=== PATIENT | male | born 1970 | race Caucasian/White ===

== ENCOUNTER 2016-11-09 03:43 | Emergency (ER) | payer MEDICAID ==
[~2016-11-09 03:43] MED LIST: ADULT LOW DOSE81 MG PO; BENTYL10 MG PO; CARAFATE1 GM PO; COREG12.5 MG PO; DALIRESP500 MCG PO; DESYREL50 MG PO; FEOSOL325 MG PO; LIPITOR40 MG PO; PLAVIX75 MG PO; PRILOSEC20 MG PO; PROAIR HFA8.5 GM INH; SPIRIVA18 MCG PO; SYMBICORT 1601 PUFFS PO; UROCIT-K10 MEQ PO; VENLAFAXINE HCL75 M1 PO; ZANTAC150 MG PO; ZOFRAN4 MG PO
[2016-11-09 04:22] LABS: BASOPHIL 0.8 % (0-2); EOSINOPHIL 1.1 % (0-5); HCT 33.5 % (42.0-52.0); HGB 11.4 g/dl (13.2-18.0); LYMPHOCYTE 19.3 % (15-48); MCH 26.5 pg (25.0-31.0); MCV 77.9 fL (78.0-100.0); MONOCYTE 11.8 % (0-12); MPV 10.4 fL (6.0-9.5); PLT 349 K/uL (150-400); RDW 21.9 % (11.5-14.0); WBC 10.6 K/uL (4.0-10.5)
[2016-11-09 04:25] LABS: INR 0.98 (0.9-1.2); PROTHROMBIN TIME 12.1 SECONDS (11.4-13.2); PTT 28.6 SECONDS (24.3-32.1)
[2016-11-09 04:35] LABS: ALBUMIN 3.8 g/dL (3.5-5.0); CREATININE 0.9 mg/dL (0.7-1.2); GLOBULIN (CALCULATION) 4.4 g/dL (2.2-4.2); POTASSIUM 3.8 mmol/L (3.5-5.1); TOTAL PROTEIN 8.2 g/dL (6.4-8.3)
[2016-11-09 04:58] LABS: BILIRUBIN NEGATIVE (NEGATIVE); BLOOD TRACE-INTACT Ery/uL (NEGATIVE); CLARITY CLEAR (CLEAR); COLOR YELLOW (YELLOW); GLUCOSE (U) NORMAL (NORMAL); KETONE (U) NEGATIVE (NEGATIVE); LEUKOCYTES 2+ Leu/uL (NEGATIVE); NITRITE NEGATIVE (NEGATIVE); PROTEIN 1+ mg/dL (NEGATIVE); SPECIFIC GRAVITY 1.015 (1.001-1.030); pH 6.5 (5.0-9.0)
[2016-11-09 05:02] LABS: BACTERIA TRACE; URINARY RBC RARE
[2016-11-09 05:05] LABS: AMPHETAMINES NEGATIVE (NEGATIVE); BENZODIAZEPINES NEGATIVE (NEGATIVE); COCAINE NEGATIVE (NEGATIVE)
[2016-11-09 05:06] LABS: BARBITURATES NEGATIVE (NEGATIVE); MARIJUANA (THC) NEGATIVE (NEGATIVE); METHADONE NEGATIVE (NEGATIVE); TRICYCLIC ANTIDEPRESSANT NEGATIVE (NEGATIVE)
== END 2016-11-09 06:15 | disposition home or self-care (01) ==
LOC: FER 03:43
PROVIDERS: Emergency Medicine
DX: K70.10 Alcoholic hepatitis without ascites (principal); K29.00 Acute gastritis without bleeding; R19.7 Diarrhea, unspecified; F41.9 Anxiety disorder, unspecified; F32.9 Major depressive disorder, single episode, unspecified; I51.9 Heart disease, unspecified; K21.9 Gastro-esophageal reflux disease without esophagitis; F17.210 Nicotine dependence, cigarettes, uncomplicated; Z79.899 Other long term (current) drug therapy; Z79.82 Long term (current) use of aspirin
CPT/HCPCS: 36415; 74022; 80053; 80305; 81001; 83690; 84484; 85025; 85610; 85730; 93005; G0480; J2060; Q9967

== ENCOUNTER 2020-12-13 16:09 | Emergency (ER) | payer MEDICAID ==
[~2020-12-13 16:09] MED LIST changes: +ASCORBIC ACID500 MG PO; +ASPIRIN CHEWABL81 MG PO; +ASPIRIN325 MG PO; +AUGMENTIN 875-1 EACH PO; +BACTRIM DS TAB1 EACH PO; +CARAFATE S500 MG/TSP PO; +CELEXA 40MG TAB40 MG PO; +CIPRO500 M1 PO; +CIPRO500 MG PO; +CLARITIN10 MG PO; +CYCLOBENZAPRINE10 MG PO; +IBUPROFEN800 MG PO; +ISMO20 MG PO; +ISOSORBIDE DINI10 MG PO; +ISOSORBIDE DINI30 MG PO; +LEVAQUIN500 MG PO; +LEVAQUIN750 MG PO; +LOPRESSOR25 MG PO; +MAG-OXIDE 400M400 MG PO; +METOPROLOL TART25 M1 PO; +METRONIDAZOLE500 MG PO; +MUPIROCIN30 GM TOP; +NITROQUIK SL0.4 MG SL; +NORCO 5-325 TA1 EACH PO; +NORVASC 5MG TABL5 MG PO; +NORVASC5 MG PO; +OMEPRAZOLE40 MG PO; +ONDANSETRON HCL4 MG PO; +ONDANSETRON ODT4 MG SL; +PEPCID AC20 MG PO; +PERCOCET 5-3251 EACH PO; +PERCOCET 7.5/321 TAB PO; +PHENERGAN12.5 M1 PO; +PREDNISONE 20MG20 MG PO; +PREDNISONE5 MG PO; +SPIRIVA RESPIMAT4 GM PO; +SYMBICORT 16010.2 GM INH; +SYMBICORT 80-10.2 GM INH; +VENTOLIN HFA IN18 GM INH; +ZITHROMAX TRI-500 MG PO; +ZOFRAN4 M1 PO; +ZOFRAN4 MG SL; +pro air
[2020-12-13 16:56] LABS: BASOPHIL 0.7 % (0-2); HCT 45.5 % (42.0-52.0); HGB 14.9 g/dl (13.2-18.0); LYMPHOCYTE 8.7 % (15-48); MCH 29.4 pg (25.0-31.0); MCHC 32.7 g/dL (32.0-36.0); MCV 89.9 fL (78.0-100.0); MONOCYTE 10.6 % (0-12); MPV 9.2 fL (6.0-9.5); NEUTROPHIL 76.5 % (41-80); NRBC 0; PLT 596 K/uL (150-400); RBC 5.06 M/uL (4.70-6.00); RDW 15.3 % (11.5-14.0); WBC 17.8 K/uL (4.0-10.5)
[2020-12-13 17:14] LABS: ALBUMIN 2.7 g/dL (3.4-5.0); BILIRUBIN - TOTAL 0.7 mg/dL (0.2-1.0); CREATININE 0.99 mg/dL (0.67-1.17); GLOBULIN (CALCULATION) 5.6 g/dL; POTASSIUM 2.8 mmol/L (3.5-5.1); TOTAL PROTEIN 8.3 g/dL (6.4-8.2)
[2020-12-13 20:00] LABS: BILIRUBIN NEGATIVE (NEGATIVE); BLOOD NEGATIVE Ery/uL (NEGATIVE); CLARITY CLEAR (CLEAR); COLOR YELLOW (YELLOW); GLUCOSE (U) NORMAL (NORMAL); LEUKOCYTES NEGATIVE Leu/uL (NEGATIVE); NITRITE NEGATIVE (NEGATIVE); PROTEIN NEGATIVE (NEGATIVE); SPECIFIC GRAVITY <=1.005 (1.001-1.030); UROBILINOGEN 0.2 mg/dL (0.2-1.0)
[2020-12-14] MEDS ORDERED: SYMBICORT 80-10.2 GM INH (01:19)
== END 2020-12-13 20:50 | disposition home or self-care (01) ==
LOC: FER 16:09
PROVIDERS: Nurse Practitioner Family
DX: K52.9 Noninfective gastroenteritis and colitis, unspecified (principal); J44.9 Chronic obstructive pulmonary disease, unspecified; I25.2 Old myocardial infarction; Z88.8 Allergy status to other drugs, medicaments and biological substances
CPT/HCPCS: 36415; 80053; 81003; 83605; 83690; 85025; 87040; J2270; J2405; J2543; J3480; J7030

== ENCOUNTER 2020-12-13 22:20 | Day surgery (SDCO) | payer MEDICAID ==
[~2020-12-13] VITALS: Ht 175.3 cm; Wt 73.2 kg
[2020-12-14] MEDS ORDERED: SYMBICORT 80-10.2 GM INH (01:19)
[2020-12-14 05:43] LABS: BASOPHIL 0.7 % (0-2); EOSINOPHIL 3.7 % (0-5); HCT 38.8 % (42.0-52.0); HGB 12.5 g/dl (13.2-18.0); LYMPHOCYTE 14.1 % (15-48); MCH 28.9 pg (25.0-31.0); MCHC 32.2 g/dL (32.0-36.0); MCV 89.8 fL (78.0-100.0); MPV 9.6 fL (6.0-9.5); NEUTROPHIL 68.9 % (41-80); NRBC 0; PLT 497 K/uL (150-400); RBC 4.32 M/uL (4.70-6.00); RDW 15.2 % (11.5-14.0); WBC 15.8 K/uL (4.0-10.5)
[2020-12-14 06:12] LABS: ALBUMIN 2.4 g/dL (3.4-5.0); BILIRUBIN - TOTAL 0.8 mg/dL (0.2-1.0); BUN/CREAT RATIO (CALC) 2.1 RATIO; C-REACTIVE PROTEIN 2.1 mg/dL (<=0.90); CREATININE 0.97 mg/dL (0.67-1.17); GLOBULIN (CALCULATION) 4.6 g/dL; MAGNESIUM 1.6 mg/dL (1.8-2.4); PHOSPHORUS 2.4 mg/dL (2.6-4.7); POTASSIUM 2.8 mmol/L (3.5-5.1)
[2020-12-14 14:52] LABS: HGB 11.4 g/dl (13.2-18.0); MCH 29.3 pg (25.0-31.0); MCHC 32.6 g/dL (32.0-36.0); MPV 8.9 fL (6.0-9.5); RBC 3.89 M/uL (4.70-6.00); RDW 15.3 % (11.5-14.0)
[2020-12-14 15:14] LABS: BUN/CREAT RATIO (CALC) 1.1 RATIO; C-REACTIVE PROTEIN 2.4 mg/dL (<=0.90); CREATININE 0.92 mg/dL (0.67-1.17); MAGNESIUM 1.9 mg/dL (1.8-2.4); PHOSPHORUS 2.5 mg/dL (2.6-4.7); POTASSIUM 2.6 mmol/L (3.5-5.1)
[2020-12-15 05:44] LABS: BASOPHIL 0.5 % (0-2); EOSINOPHIL 5.1 % (0-5); HGB 11.4 g/dl (13.2-18.0); LYMPHOCYTE 16.5 % (15-48); MCH 29.6 pg (25.0-31.0); MCHC 32.6 g/dL (32.0-36.0); MCV 90.9 fL (78.0-100.0); MPV 9.6 fL (6.0-9.5); NEUTROPHIL 64.3 % (41-80); NRBC 0; PLT 413 K/uL (150-400); RBC 3.85 M/uL (4.70-6.00); RDW 15.6 % (11.5-14.0); WBC 12.6 K/uL (4.0-10.5)
[2020-12-15 06:09] LABS: BILIRUBIN - TOTAL 0.5 mg/dL (0.2-1.0); BUN/CREAT RATIO (CALC) 2.2 RATIO; CREATININE 0.89 mg/dL (0.67-1.17); GLOBULIN (CALCULATION) 4.3 g/dL; MAGNESIUM 1.6 mg/dL (1.8-2.4); POTASSIUM 3.4 mmol/L (3.5-5.1); TOTAL PROTEIN 6.3 g/dL (6.4-8.2)
[2020-12-15] MEDS ORDERED: NORVASC 5MG TABL5 MG PO (10:08)
[2020-12-15] MEDS ORDERED: ISOSORBIDE DINI30 MG PO (10:08)
[2020-12-15] MEDS ORDERED: NORCO 5-325 TA1 EACH PO (10:08)
[2020-12-15] MEDS ORDERED: FEOSOL325 MG PO (10:08)
[2020-12-15] MEDS ORDERED: TOPROL XL 25MG25 MG PO (10:08)
[2020-12-15] MEDS ORDERED: LIPITOR40 MG PO (10:08)
[2020-12-15] MEDS ORDERED: PLAVIX75 MG PO (10:08)
[2020-12-15] MEDS ORDERED: LEVAQUIN750 MG PO (10:08)
[2020-12-15] MEDS ORDERED: OMEPRAZOLE40 MG PO (10:08)
[2020-12-15] MEDS ORDERED: VENTOLIN HFA IN18 GM INH (10:08)
[2020-12-15] MEDS ORDERED: BENTYL10 MG PO (10:08)
== END 2020-12-15 15:03 | disposition home or self-care (01) ==
LOC: FER 22:20 → FMS 22:57
PROVIDERS: Nurse Practitioner; ADMIT Internal Medicine
DX: K52.9 Noninfective gastroenteritis and colitis, unspecified (principal); Z88.8 Allergy status to other drugs, medicaments and biological substances; I10 Essential (primary) hypertension; J44.9 Chronic obstructive pulmonary disease, unspecified; I25.2 Old myocardial infarction; K21.9 Gastro-esophageal reflux disease without esophagitis; Z87.891 Personal history of nicotine dependence; Z20.822 Contact with and (suspected) exposure to COVID-19; A41.9 Sepsis, unspecified organism; Z87.19 Personal history of other diseases of the digestive system; I25.10 Atherosclerotic heart disease of native coronary artery without angina pectoris
CPT/HCPCS: 36415; 80048; 80053; 83036; 83605; 83615; 83690; 83735; 83880; 84100; 84145; 85025; 86140; 94010; 94640; 99284; C9113; G0378; J1170; J1650; J2270; J2405; J2543; J3475; J3480; J3490; J7030; Q9967; U0002